=== PATIENT | female | born 1940 | race Caucasian/White ===

== ENCOUNTER 2016-05-29 09:01 | Emergency (ER) | payer MEDICARE, MEDICAID ==
[~2016-05-29] VITALS: Ht 152.4 cm; Wt 54.0 kg
[2016-05-29] MEDS ORDERED: KETOROLAC 60MG/2ML VIAL IM ONE (10:30)
[2016-05-29 10:39] VITALS: BP 120/66
== END 2016-05-29 11:37 | disposition home or self-care (01) ==
LOC: ER 09:59
DX: G89.29 Other chronic pain (principal); M54.2 Cervicalgia
CPT/HCPCS: 96372; 99283; J1885

== ENCOUNTER 2016-10-09 09:44 | Emergency (ER) | payer MEDICARE, MEDICAID ==
[~2016-10-09] VITALS: Ht 154.9 cm; Wt 58.0 kg
[2016-10-09] MEDS ORDERED: AMLODIPINE 2.5MG TABLET PO ONE (10:15)
[2016-10-09 10:34] LABS: PARTIAL THROMBOPLASTIN TIME 28.3 sec (23.4-31.0); PROTHROMBIN TIME 10.6 sec (9.4-11.6)
[2016-10-09 10:36] LABS: BASOPHILS % 0.7 % (0.0-2.0); EOSINOPHILS % 2.1 % (0.0-5.0); HEMATOCRIT. 42.1 % (36.0-48.0); HEMOGLOBIN. 14.4 g/dL (12.0-16.0); LYMPHOCYTES % 27.1 % (20.0-50.0); MEAN CORPUSCULAR HEMOGLOBIN 29.6 pg (28.0-32.0); MEAN CORPUSCULAR VOLUME 86.6 fL (81.0-99.0); MEAN PLATELET VOLUME 7.6 fl (7.4-10.4); MONOCYTES % 8.7 % (2.0-8.0); NEUTROPHILS % 61.4 % (40.0-76.0); PLATELET 237 x1000/uL (130-400); RED BLOOD CELL COUNT 4.86 mill/uL (4.2-5.4); RED CELL DISTRIBUTION WIDTH 14.4 % (11.6-14.6)
[2016-10-09 10:42] LABS: CARBON DIOXIDE 26 mEq/L (21-32); CHLORIDE 104 mEq/L (98-107); CREATINE KINASE 121 IU/L (26-192); TROPONIN I < 0.02 ng/mL (0.00-0.04)
[2016-10-09 10:43] LABS: CREATINE KINASE MB FRACTION 1.6 ng/mL (0.5-3.6)
[2016-10-09 14:16] VITALS: BP 144/75
[2016-10-09] MEDS ORDERED: ONDANSETRON HCL 4MG/2ML VIAL IV PRN (15:15)
[2016-10-09] MEDS ORDERED: ACETAMINOPHEN 325MG TABLET PO PRN (15:15)
[2016-10-09] MEDS ORDERED: LORAZEPAM 0.5MG TABLET PO PRN (15:15)
[2016-10-09] MEDS ORDERED: ASPIRIN 81MG EC TABLET PO ONE (15:15)
[2016-10-09] MEDS ORDERED: IPRATROPIUM/ALBUTEROL 0.5-3(2.5)MG/3ML NEB HHN SCH (20:00)
[2016-10-09] MEDS ORDERED: HYDROMORPHONE HCL/PF 2MG/ML CPJ IV PRN (20:00)
[2016-10-10] MEDS ORDERED: AMLODIPINE 2.5MG TABLET PO SCH (09:00)
== END 2016-10-09 14:56 | disposition left against medical advice (07) ==
LOC: ER 10:01 → EDBEDREQ 11:35 → ENRESERV 14:40 → CANRESERV 14:40 → ER 14:56
DX: I10 Essential (primary) hypertension (principal); J44.9 Chronic obstructive pulmonary disease, unspecified; F17.290 Nicotine dependence, other tobacco product, uncomplicated; R79.1 Abnormal coagulation profile
CPT/HCPCS: 36415; 71010; 71250; 80053; 82550; 82553; 83690; 83880; 84443; 84484; 85025; 85610; 85730; 93005; 99285; A4315

== ENCOUNTER 2018-06-06 22:06 | Emergency (ER) | payer MEDICARE, MEDICAID ==
[~2018-06-06] VITALS: Ht 152.4 cm; Wt 50.3 kg
[2018-06-07] MEDS ORDERED: MAGNESIUM/ALUMINUM HYDROXIDE/SIMETHICONE 30ML UDC PO STA (00:54)
[2018-06-07 01:16] LABS: CLARITY URINE CLEAR (CLEAR); COLOR URINE YELLOW (YELLOW); KETONES URINE NEGATIVE (NEGATIVE); LEUKOCYTE ESTERASE URINE TRACE (NEGATIVE); NITRITE URINE POSITIVE (NEGATIVE); OCCULT BLOOD URINE 1+ (NEGATIVE); PROTEIN URINE NEGATIVE (NEGATIVE); SPECIFIC GRAVITY URINE 1.015 (1.005-1.030); UROBILINOGEN URINE 0.2 E.U./dL (0.2-1.0)
[2018-06-07 02:20] LABS: BASOPHILS % 0.7 % (0.0-2.0); EOSINOPHILS % 0.5 % (0.0-5.0); HEMATOCRIT. 40.3 % (36.0-48.0); HEMOGLOBIN. 13.7 g/dL (12.0-16.0); LYMPHOCYTES % 12.1 % (20.0-50.0); MEAN CORPUSCULAR HEMOGLOBIN 29.8 pg (28.0-32.0); MEAN CORPUSCULAR VOLUME 87.6 fL (81.0-99.0); MEAN PLATELET VOLUME 7.6 fl (7.4-10.4); MONOCYTES % 6.7 % (2.0-8.0); PLATELET 259 x1000/uL (130-400); RED BLOOD CELL COUNT 4.61 mill/uL (4.2-5.4); RED CELL DISTRIBUTION WIDTH 13.9 % (11.6-14.6)
[2018-06-07 02:22] LABS: CHLORIDE 104 mEq/L (98-107)
[2018-06-07] MEDS ORDERED: SODIUM CHLORIDE 0.9% 1,000 ML IV ONE (02:57)
[2018-06-07] MEDS ORDERED: CEFTRIAXONE 1 G PREMIX 50 ML IV ONE (03:00)
[2018-06-07 03:14] VITALS: BP 129/78
== END 2018-06-07 03:48 | disposition left against medical advice (07) ==
LOC: ER 22:06 → CANBEDREQ 06-07 04:47
DX: K80.20 Calculus of gallbladder without cholecystitis without obstruction (principal); F17.200 Nicotine dependence, unspecified, uncomplicated; J44.9 Chronic obstructive pulmonary disease, unspecified; I10 Essential (primary) hypertension
CPT/HCPCS: 36415; 71045; 76700; 84484; 93005; 99284; 99406